=== PATIENT | female | born 1955 | race Caucasian/White ===

== ENCOUNTER → 2017-06-06 | Emergency (ER) | payer OTHER ==
[~2017-06-06] VITALS: Ht 165.1 cm; Wt 82.6 kg
[~2017-06-06] MED LIST: HYZAAR 50-12.51 EACH
== END | disposition home or self-care (01) ==
LOC: ER 17:51
DX: S13.4XXA Sprain of ligaments of cervical spine, initial encounter (principal); V49.09XA Driver injured in collision with other motor vehicles in nontraffic accident, initial encounter; Y93.89 Activity, other specified; Y92.488 Other paved roadways as the place of occurrence of the external cause; Y99.8 Other external cause status